=== PATIENT | male | born 1970 | race Two or more races ===

== ENCOUNTER 2021-08-20 13:15 | Inpatient (IN) | payer OTHER ==
[~2021-08-20] VITALS: Ht 172.7 cm; Wt 77.1 kg
[2021-08-21] MEDS ORDERED: DICYCLOMINE HCL20 MG (08:07)
[2021-08-30] MEDS ORDERED: METRONIDAZOLE500 MG PO (08:43)
== END 2021-08-30 15:54 | disposition home or self-care (01) | DRG 391 ==
LOC: ER 13:15 → SEC-K 16:01 → SURH 16:01
PROVIDERS: ADMIT Surgery; ATTEND Surgery
PROC: 02HV33Z Insertion of Infusion Device into Superior Vena Cava, Percutaneous Approach (ICD-10-PCS; 2021-08-21)
PROC: 0W9F30Z Drainage of Abdominal Wall with Drainage Device, Percutaneous Approach (ICD-10-PCS; principal; 2021-08-22)
PROC: BW21YZZ Computerized Tomography (CT Scan) of Abdomen and Pelvis using Other Contrast (ICD-10-PCS; 2021-08-27)
DX: K57.20 Diverticulitis of large intestine with perforation and abscess without bleeding (principal); K65.1 Peritoneal abscess; R10.32 Left lower quadrant pain; K59.09 Other constipation; Z20.822 Contact with and (suspected) exposure to COVID-19; B95.4 Other streptococcus as the cause of diseases classified elsewhere

== ENCOUNTER 2021-09-01 12:17 | Emergency (ER) | payer OTHER ==
[~2021-09-01] VITALS: Ht 172.7 cm; Wt 85.7 kg
[~2021-09-01 12:17] MED LIST: DICYCLOMINE HCL20 MG; METRONIDAZOLE500 MG PO
== END 2021-09-01 14:15 | disposition home or self-care (01) ==
LOC: ER 12:17
DX: T82.898A Other specified complication of vascular prosthetic devices, implants and grafts, initial encounter (principal)

== ENCOUNTER 2021-09-27 11:30 | Inpatient (IN) | payer OTHER ==
[~2021-09-27] VITALS: Ht 172.7 cm; Wt 75.3 kg
[~2021-09-27 11:30] MED LIST changes: +DICY20TA PO; +PANADOL PO; +PEPCID20 MG PO
[2021-10-03] MEDS ORDERED: PANADOL MAXIMU500 MG (07:53)
[2021-10-06] MEDS ORDERED: INTESTINEX680 M1 PO (14:55)
[2021-10-06] MEDS ORDERED: ULTRAM50 MG PO (14:58)
[2021-10-06] MEDS ORDERED: ANALPRAM HC 2.530 GM RECTAL (15:24)
== END 2021-10-06 16:45 | disposition home or self-care (01) | DRG 330 ==
LOC: O/R 10-03 06:49 → SURG 10-03 06:49 → SURH 10-03 10:45 → SURG 10-03 15:27
PROVIDERS: ADMIT Surgery; ATTEND Surgery
PROC: 0DBP4ZZ Excision of Rectum, Percutaneous Endoscopic Approach (ICD-10-PCS; 2021-10-03)
PROC: 0DQ84ZZ Repair Small Intestine, Percutaneous Endoscopic Approach (ICD-10-PCS; 2021-10-03)
PROC: 0DNU4ZZ Release Omentum, Percutaneous Endoscopic Approach (ICD-10-PCS; 2021-10-03)
PROC: 3E0F7SF Introduction of Other Gas into Respiratory Tract, Via Natural or Artificial Opening (ICD-10-PCS; 2021-10-03)
PROC: 0DTN4ZZ Resection of Sigmoid Colon, Percutaneous Endoscopic Approach (ICD-10-PCS; principal; 2021-10-03 10:45)
DX: K57.20 Diverticulitis of large intestine with perforation and abscess without bleeding (principal); K63.2 Fistula of intestine; K91.71 Accidental puncture and laceration of a digestive system organ or structure during a digestive system procedure; K66.0 Peritoneal adhesions (postprocedural) (postinfection)

== ENCOUNTER 2021-10-09 08:22 | Emergency (ER) | payer OTHER ==
[~2021-10-09] VITALS: Ht 172.7 cm; Wt 75.3 kg
[~2021-10-09 08:22] MED LIST changes: +ANALPRAM HC 2.530 GM RECTAL; +INTESTINEX680 M1 PO; +PANADOL MAXIMU500 MG; +ULTRAM50 MG PO
[2021-10-09] MEDS ORDERED: MEDI-MECLIZINE25 MG PO (14:42)
[2021-10-09] MEDS ORDERED: PERCOCET 5-3251 EACH PO (14:42)
[2021-10-09] MEDS ORDERED: CELEBREX100 MG PO (14:42)
== END 2021-10-09 15:10 ==
LOC: ER 08:22
DX: H81.10 Benign paroxysmal vertigo, unspecified ear (principal); T40.425A Adverse effect of tramadol, initial encounter